=== PATIENT | female | born 1940 | race Native Hawaiian/Other Pacific Islander ===

== ENCOUNTER 2020-08-08 17:03 | Emergency (ER) | payer OTHER ==
[~2020-08-08] VITALS: Ht 157.5 cm; Wt 73.5 kg
[2020-08-08 17:03] VITALS: TEMP 97.8
[2020-08-08 17:37] LABS: PLATELET COUNT 145 K/uL (152-353)
[2020-08-08 17:56] LABS: POTASSIUM 3.9 mmol/L (3.6-5.2)
[2020-08-08 18:31] VITALS: BP 172/64
[2020-08-08] MEDS ORDERED: EUTHYROX50 MCG PO (22:51)
[2020-08-08] MEDS ORDERED: RISPERIDONE PO ×2 (22:55→23:00)
[2020-08-08] MEDS ORDERED: SERT100T PO (22:56)
[2020-08-08] MEDS ORDERED: GABA300C2 PO (22:58)
[2020-08-08] MEDS ORDERED: IBU600 MG PO (23:05)
[2020-08-08] MEDS ORDERED: ATIVAN TOP (23:10)
[2020-08-08] MEDS ORDERED: ALBUTEROL0.083 % INH (23:12)
[2020-08-08] MEDS ORDERED: IPRATR-ALBUTEROL INH (23:17)
[2020-08-08] MEDS ORDERED: ARTIFICIAL TEARS1 % OPTH (23:21)
== END 2020-08-08 19:59 | disposition other institution (70) ==
LOC: ED 17:03
PROVIDERS: Family Medicine
DX: R46.89 Other symptoms and signs involving appearance and behavior (principal); F32.89 Other specified depressive episodes; Z11.59 Encounter for screening for other viral diseases; Z04.6 Encounter for general psychiatric examination, requested by authority
CPT/HCPCS: 80053; 81000; 85027; 87635; 93005; 99283; 99285; U0003